=== PATIENT | male | born 1980 | race Hispanic/Latino ===

== ENCOUNTER 2017-05-09 08:07 | Emergency (ER) | payer SELFPAY ==
[2017-05-09 08:20] VITALS: RESP 18; TEMP 98.7; BMI 34.7
[2017-05-09] MEDS ORDERED: Albuterol-Ipratrop 3 mg / 0.5 (3 ml) UD IH STA (08:44)
--- NOTE | 2017-05-09 08:53 | ED PDOC ---
Arrival/HPI - General Chief Complaint: Chest Pain Time Seen by Provider: 05/09/17 08:27 Historian: Patient - History of Present Illness Narrative History of Present Illness (Text): 05/09/17 08:40 Cameron Langford is 36 year old male, whose past medical history includes asthma, who presents to the emergency department complaining of shortness of breath associated with chest discomfort, nausea and vomiting that happened last night. He reports that the symptoms have now resolved. He describes the pain as similar to his asthma. He reports that he took his inhaler machine with some relief. He states chest discomfort is worse with deep breathing and certain movement. He denies any headache, abdominal pain, fever, diarrhea, chills, or any other complaints. He denies hypertension, diabetes, tobacco use or cocaine use. PMD: Dr. Diaz 05/09/17 15:08 Time/Duration: Other (last night) Symptom Onset: Sudden Symptom Course: Unchanged Quality: Tightness, Stabbing Activities at Onset: Rest Modifying Factors (Text): worse with deep breaths and certain movements Context: Home Associated Symptoms (Text): chest pain, nausea and vomiting Past Medical History - Provider Review Nursing Documentation Reviewed: Yes - Infectious Disease Hx of Infectious Diseases: None - Tetanus Immunization Tetanus Immunization: Up to Date, Unknown - Past Medical History Past Medical History: No Previous - Cardiac Hx Cardiac Disorders: No - Pulmonary Hx Respiratory Disorders: Yes Hx Asthma: Yes - Neurological Hx Neurological Disorder: No - HEENT Hx HEENT Disorder: No - Renal Hx Renal Disorder: No - Endocrine/Metabolic Hx Endocrine Disorders: No Hx Diabetes Mellitus Type 1: No - Hematological/Oncological Hx Blood Disorders: No Other/Comment: GI BLEED - Integumentary Hx Dermatological Disorder: No - Musculoskeletal/Rheumatological Hx Falls: No - Gastrointestinal Hx Gastroesophageal Reflux: Yes Other/Comment: pt reports endo. sx in the past but is unsure as to when or what it was. - Genitourinary/Gynecological Hx Genitourinary Disorders: No - Psychiatric Hx Anxiety: Yes Hx Depression: No Hx Emotional Abuse: No Hx Physical Abuse: No Hx Substance Use: No - Past Surgical History Past Surgical History: No Previous - Surgical History Hx Appendectomy: Yes - Anesthesia Hx Anesthesia: Yes Hx Anesthesia Reactions: No Hx Malignant Hyperthermia: No - Suicidal Assessment Feels Threatened In Home Enviroment: No Family/Social History - Physician Review Nursing Documentation Reviewed: Yes Family/Social History: Unknown Family HX Smoking Status: Never Smoked Hx Alcohol Use: Yes Hx Substance Use: No Hx Substance Use Treatment: No Allergies/Home Meds Allergies/Adverse Reactions: Allergies shellfish derived Allergy (Verified 12/01/16 19:35) ANAPHYLAXIS cats Adverse Reaction (Severe, Uncoded 05/09/17 08:36) SHORTNESS OF BREATH Itching, rash, shortness of breath Home Medications: Home Meds Medication Instructions Recorded Confirmed Pantoprazole Sodium [Protonix] 40 mg PO DAILY 08/20/15 05/09/17 Albuterol HFA [Ventolin HFA 90 1 puff IH PRN PRN 12/01/16 05/09/17 mcg/actuation (8 g)] Review of Systems - Review of Systems Constitutional: absent: Fevers, Night Sweats Eyes: absent: Vision Changes ENT: absent: Hearing Changes, Rhinorrhea Respiratory: SOB. absent: Cough Cardiovascular: Chest Pain. absent: Palpitations Gastrointestinal: Nausea, Vomiting. absent: Abdominal Pain, Diarrhea Genitourinary Male: absent: Dysuria, Frequency Musculoskeletal: absent: Back Pain, Neck Pain Skin: absent: Rash Neurological: absent: Headache, Dizziness, Speech Changes Endocrine: absent: Diaphoresis Psychiatric: absent: Depression Physical Exam Vital Signs Reviewed: Yes Vital Signs Temp Pulse Resp BP Pulse Ox 05/09/17 11:55 76 18 135/80 98 05/09/17 10:00 78 18 137/79 98 05/09/17 09:45 81 18 139/84 98 05/09/17 09:13 81 18 140/77 97 05/09/17 08:20 98.7 F 88 18 123/82 97 Temperature: Afebrile Blood Pressure: Normal Pulse: Regular Respiratory Rate: Normal Appearance: Positive for: Well-Appearing, Non-Toxic Pain Distress: None Mental Status: Positive for: Alert and Oriented X 3 - Systems Exam Head: Present: Atraumatic, Normocephalic Pupils: Present: PERRL Extroacular Muscles: Present: EOMI Conjunctiva: Present: Normal Mouth: Present: Moist Mucous Membranes Pharnyx: No: ERYTHEMA, EXUDATE, TONSILS ENLARGED, Peritonsilar Swelling, Uvular Deviation Neck: Present: Normal Range of Motion Respiratory/Chest: Present: Good Air Exchange, Wheezes (scant wheezing at the bases). No: Respiratory Distress, Accessory Muscle Use Cardiovascular: Present: Regular Rate and Rhythm, Normal S1, S2. No: Murmurs Abdomen: Present: Normal Bowel Sounds. No: Tenderness, Distention, Peritoneal Signs Back: Present: Normal Inspection. No: Midline Tenderness Upper Extremity: Present: Normal Inspection. No: Cyanosis, Edema Lower Extremity: Present: Normal Inspection. No: Edema Neurological: Present: GCS=15, CN II-XII Intact, Speech Normal Skin: Present: Warm, Dry, Normal Color. No: Rashes Psychiatric: Present: Alert, Oriented x 3, Normal Insight, Normal Concentration Medical Decision Making ED Course and Treatment: 05/09/17 08:40 Impression: 36 year old male with shortness of breath with chest tightness. Differential Diagnosis included but are not limited to: Asthma exacerbation vs PE vs ptx vs pna Plan: -- EKG -- Chest X-ray -- Labs -- Duoneb -- Reassess and disposition Prior Visits: Notes and results from previous visits were reviewed. The patient last presented to the emergency department on 12/01/16 for evaluation of chest discomfort. Progress Notes: 05/09/17 10:50 Chest X-ray: Creator : Dr. Arredondo, Chad SILVA COMPARISON: 12/01/2016 FINDINGS: LUNGS: No active pulmonary disease. PLEURA: No significant pleural effusion identified. No pneumothorax apparent. CARDIOVASCULAR: Normal. OSSEOUS STRUCTURES: No significant abnormalities. VISUALIZED UPPER ABDOMEN: Normal. OTHER FINDINGS: None. IMPRESSION: No active disease. 05/09/17 11:13 Symptoms had resolved on arrival. Patient has been resting comfortably during the emergency department visit. Labs and d-dimer grossly normal. Jolienet has normal vitals. 05/09/17 11:15 Patient was given nebulizer treatment and wheezing resolved. EKG shows NSR at 74bpm with normal intervals and no ST changes. He has no risk factors for cardiac disease. He denies recurrence of symptoms. Patient to follow-up with PMD - Lab Interpretations Lab Results: 05/09/17 09:00 05/09/17 09:00 Lab Results 05/09/17 09:00: Sodium 141, Potassium 3.9, Chloride 105, Carbon Dioxide 26, Anion Gap 14, BUN 14, Creatinine 0.9, Est GFR ( Amer) > 60, Est GFR (Non- Af Amer) > 60, Random Glucose 100, Calcium 9.6, Total Bilirubin 0.9, AST 54, ALT 103 H, Alkaline Phosphatase 62, Total Protein 7.9, Albumin 4.3, Globulin 3.5 , Albumin/Globulin Ratio 1.2 05/09/17 09:00: D-Dimer, Quantitative 0.33 05/09/17 09:00: WBC 11.5 H, RBC 5.33, Hgb 15.8, Hct 45.3, MCV 85.0, MCH 29.6, MCHC 34.9, RDW 12.8, Plt Count 244, MPV 10.5, Gran % 67.3, Lymph % (Auto) 22.1, Davidson % (Auto) 7.5 H, Eos % (Auto) 2.8, Baso % (Auto) 0.3, Gran # 7.72 H, Lymph # 2.5, Davidson # 0.9 H, Eos # 0.3, Baso # 0.04 I have reviewed the lab results: Yes - RAD Interpretation Radiology Orders: 05/09/17 08:36 CHEST TWO VIEWS (PA/LAT) [RAD] Stat - Medication Orders Current Medication Orders: Discontinued Medications Albuterol/Ipratropium (Duoneb 3 Mg/0.5 Mg (3 Ml) Ud) 3 ml IH STAT STA Stop: 05/09/17 08:45 Last Admin: 05/09/17 08:50 Dose: 3 ml - Scribe Statement The provider has reviewed the documentation as recorded by the Scribe 05/09/17 Miracle Duron training with Fozia Li Provider Scribe Attestation: All medical record entries made by the Scribe were at my direction and personally dictated by me. I have reviewed the chart and agree that the record accurately reflects my personal performance of the history, physical exam, medical decision making, and the department course for this patient. I have also personally directed, reviewed, and agree with the discharge instructions and disposition. Disposition/Present on Arrival - Present on Arrival Any Indicators Present on Arrival: No History of DVT/PE: No History of Uncontrolled Diabetes: No Urinary Catheter: No History of Decub. Ulcer: No History Surgical Site Infection Following: None - Disposition Have Diagnosis and Disposition been Completed?: Yes Diagnosis: Asthma, Chest pain Disposition: HOME/ ROUTINE Disposition Time: 11:14 Patient Plan: Discharge Patient Problems: Current Active Problems Problem Status Onset Asthma Acute Chest pain Acute Condition: GOOD Discharge Instructions (ExitCare): Chest Pain (ED) Additional Instructions: Follow up with PMD within 2 days. Return to emergency department if condition worsens. Prescriptions: Albuterol HFA [Ventolin HFA 90 mcg/actuation (8 g)] 1 puff IH Q6 #1 inhaler
[2017-05-09 09:12] LABS: BASO # 0.04 K/mm3 (0.0-2.0); BASO % 0.3 % (0.0-3.0); EOS # 0.3 (0.0-0.7); EOS % 2.8 % (1.5-5.0); GRAN # 7.72 (1.4-6.5); GRAN % 67.3 % (50.0-68.0); HEMOGLOBIN 15.8 gm/dL (14.0-18.0); LYMPH # 2.5 (1.2-3.4); LYMPH % 22.1 % (22.0-35.0); MEAN CORPUSCULAR HEMOGLOBIN 29.6 pg (25.0-35.0); MEAN CORPUSCULAR HGB CONC 34.9 g/dl (31.0-37.0); MEAN PLATELET VOLUME 10.5 fl (7.0-11.0); MONO # 0.9 (0.1-0.6); MONO % 7.5 % (1.0-6.0); PLATELET COUNT 244 10^3/uL (120.0-450.0); RBC 5.33 10^6/uL (3.5-6.1); RED CELL DISTRIBUTION WIDTH 12.8 % (11.5-14.5); WHITE BLOOD COUNT 11.5 10^3/ul (4.5-11.0)
[2017-05-09 09:25] LABS: ALB/GLOB RATIO 1.2 (1.1-1.8); ALBUMIN 4.3 g/dL (3.0-4.8); ALT/SGPT 103 U/L (7-56); AST/SGOT 54 U/L (15-59); BLOOD UREA NITROGEN 14 mg/dL (7-21); CALCIUM 9.6 mg/dL (8.4-10.5); GFR AFRICAN-AMERICAN > 60; GFR NON-AFRICAN AMERICAN > 60
[2017-05-09 09:58] VITALS: O2SAT 98
--- NOTE | 2017-05-09 10:44 | RAD ---
HISTORY: Chest pain COMPARISON: 12/01/2016 TECHNIQUE: Chest PA and lateral FINDINGS: LUNGS: No active pulmonary disease. PLEURA: No significant pleural effusion identified. No pneumothorax apparent. CARDIOVASCULAR: Normal. OSSEOUS STRUCTURES: No significant abnormalities. VISUALIZED UPPER ABDOMEN: Normal. OTHER FINDINGS: None. IMPRESSION: No active disease.
[2017-05-09 11:57] VITALS: BP 135/80; PULSE 76
--- NOTE | 2017-05-09 13:32 | CARD ---
APPROVED REPORT EKG Measurement Heart [id number] ID [id number] <Conclusion> Normal sinus rhythm Normal ECG
== END 2017-05-09 11:55 | disposition home or self-care (01) ==
LOC: ED 08:07
DX: J45.909 Unspecified asthma, uncomplicated (principal); R07.9 Chest pain, unspecified

== ENCOUNTER 2017-06-09 17:59 | Emergency (ER) | payer SELFPAY ==
[2017-06-09 17:59] VITALS: BMI 34.7
[2017-06-09 18:41] VITALS: PULSE 79; RESP 16; TEMP 98.8
--- NOTE | 2017-06-09 19:09 | ED PDOC ---
Arrival/HPI - General Chief Complaint: Trauma Time Seen by Provider: 06/09/17 19:08 Historian: Patient - History of Present Illness Narrative History of Present Illness (Text): 06/09/17 19:09 36 y/o male, pmh including asthma, nkda, c/o mid and lower back pain s/p slipped and fall x 4 hours. Pt. stated that he slipped at work on the wet floor , fall on the mid and lower back, aching pain, no urinary symptoms, no hematuria , no night sweat, no dizziness, no change in vision, no palpitation, no other medical or psychological complaints. Past Medical History - Provider Review Nursing Documentation Reviewed: Yes - Infectious Disease Hx of Infectious Diseases: None - Tetanus Immunization Tetanus Immunization: Up to Date, Unknown - Past Medical History Past Medical History: No Previous - Cardiac Hx Cardiac Disorders: No - Pulmonary Hx Respiratory Disorders: Yes Hx Asthma: Yes - Neurological Hx Neurological Disorder: No - HEENT Hx HEENT Disorder: No - Renal Hx Renal Disorder: No - Endocrine/Metabolic Hx Endocrine Disorders: No Hx Diabetes Mellitus Type 1: No - Hematological/Oncological Hx Blood Disorders: No Other/Comment: GI BLEED - Integumentary Hx Dermatological Disorder: No - Musculoskeletal/Rheumatological Hx Falls: No - Gastrointestinal Hx Gastroesophageal Reflux: Yes Other/Comment: pt reports endo. sx in the past but is unsure as to when or what it was. - Genitourinary/Gynecological Hx Genitourinary Disorders: No - Psychiatric Hx Anxiety: Yes Hx Depression: No Hx Emotional Abuse: No Hx Physical Abuse: No Hx Substance Use: No - Past Surgical History Past Surgical History: No Previous - Surgical History Hx Appendectomy: Yes - Anesthesia Hx Anesthesia: Yes Hx Anesthesia Reactions: No Hx Malignant Hyperthermia: No - Suicidal Assessment Feels Threatened In Home Enviroment: No Family/Social History - Physician Review Nursing Documentation Reviewed: Yes Family/Social History: Unknown Family HX Smoking Status: Never Smoked Hx Alcohol Use: Yes Hx Substance Use: No Hx Substance Use Treatment: No Allergies/Home Meds Allergies/Adverse Reactions: Allergies shellfish derived Allergy (Verified 12/01/16 19:35) ANAPHYLAXIS cats Adverse Reaction (Severe, Uncoded 05/09/17 08:36) SHORTNESS OF BREATH Itching, rash, shortness of breath Home Medications: Home Meds Medication Instructions Recorded Confirmed Pantoprazole Sodium [Protonix] 40 mg PO DAILY 08/20/15 06/09/17 Albuterol HFA [Ventolin HFA 90 1 puff IH PRN PRN 12/01/16 06/09/17 mcg/actuation (8 g)] Review of Systems - Review of Systems Constitutional: absent: Fatigue, Fevers Eyes: absent: Vision Changes ENT: absent: Hearing Changes Respiratory: absent: SOB, Cough Cardiovascular: absent: Chest Pain Gastrointestinal: absent: Abdominal Pain, Nausea, Vomiting Musculoskeletal: Back Pain, Myalgias. absent: Arthralgias, Neck Pain, Joint Swelling Skin: absent: Rash, Pruritis, Skin Lesions Neurological: absent: Headache, Dizziness, Focal Weakness, Gait Changes Psychiatric: absent: Anxiety, Depression, Suicidal Ideation Physical Exam Vital Signs Reviewed: Yes Vital Signs Temp Pulse Resp BP Pulse Ox 06/09/17 18:40 98.8 F 79 16 131/91 H 94 L Temperature: Afebrile Blood Pressure: Hypertensive Pulse: Regular Respiratory Rate: Normal Appearance: Positive for: Well-Appearing, Non-Toxic Pain Distress: Severe Mental Status: Positive for: Alert and Oriented X 3 - Systems Exam Head: Present: Atraumatic, Normocephalic Pupils: Present: PERRL Extroacular Muscles: Present: EOMI Conjunctiva: Present: Normal Mouth: Present: Moist Mucous Membranes Neck: Present: Normal Range of Motion, Trachea Midline. No: MIDLINE TENDERNESS , Paraspinal Tenderness, Lymphadenopathy Respiratory/Chest: Present: Clear to Auscultation, Good Air Exchange. No: Respiratory Distress, Accessory Muscle Use Cardiovascular: Present: Regular Rate and Rhythm, Normal S1, S2. No: Murmurs Abdomen: Present: Normal Bowel Sounds. No: Tenderness, Distention, Peritoneal Signs, Rebound, Guarding Back: Present: Normal Inspection, Other (Thoracic and L spine: +ttp on the lower lumbar and mid thoracic spine region with no step off, +paraspinal muscle spasm, FROM without limitation, sensation intact, motor 5/5, no saddling gait. ) . No: CVA Tenderness, Pain with Leg Raise, Decubitus Ulcer Upper Extremity: Present: Normal Inspection. No: Cyanosis, Edema Lower Extremity: Present: Normal Inspection. No: Edema Neurological: Present: GCS=15, CN II-XII Intact, Speech Normal Skin: Present: Warm, Dry, Normal Color. No: Rashes Psychiatric: Present: Alert, Oriented x 3, Normal Insight, Normal Concentration Medical Decision Making ED Course and Treatment: 06/09/17 19:38 -CT thoracic and Lumbar spine -morphine 4mg IM -observe and reassess 06/09/17 21:17 -CT thoracic and lumbar show no acute fracture or subluxation -Pain decreased, no focal neurological deficits, request to be discharged home. -Discharge home with naproxen, flexeril, lidoderm patch, heat compression, follow up with your own pmd and orthopedic spine surgeon within 2 days, return to the ER for any new or worsening signs or symptoms. - RAD Interpretation Radiology Orders: 06/09/17 19:15 LUMBAR SPINE W/O CONTRAST [CT] Stat THORACIC SPINE W/O CONT [CT] Stat CT Scan THORACIC SPINE W/O CONT Exam Date: 06/09/17 This imaging exam was performed at [facility] EXAM: CT Thoracic Spine Without Intravenous Contrast CLINICAL HISTORY: 36 years old, male; Injury or trauma; Fall; Initial encounter; Abrasion; Additional info: Slipped, fall with pain TECHNIQUE: Axial computed tomography images of the thoracic spine without intravenous contrast. This CT exam was performed using one or more of the following dose reduction techniques: automated exposure control, adjustment of the mA and/or kV according to patient size, and/or use of iterative reconstruction technique. Coronal and sagittal reformatted images were created and reviewed. EXAM DATE/TIME: 06/09/2017 7:15 PM COMPARISON: There are no prior studies for comparison. FINDINGS: Vertebrae: Thoracic vertebral bodies are normal in height, configuration and alignment. Disc spaces are maintained. There is mild spondylosis with small osteophytes at multiple levels. Facet joints align anatomically. Spinous processes align in the expected fashion. L1 and L2 are unremarkable. Adjacent ribs are intact Discs/spinal canal/neural foramina: see above Soft tissues: Paraspinous muscles are unremarkable. Lungs: There is minimal dependent atelectasis in the lungs. There are scattered small blebs. Mediastinum: There are no posterior mediastinal abnormalities. IMPRESSION: Minimal spondylosis, no acute osseous abnormality Dictated By: Mayra Pedraza MD, MD Dictated Date/Time: 06/09/172035 Signed By: Mayra Pedraza MD Date Signed: 2035 Transcribed By: VRAD Transcribe Date/Time : 06/09/172035 CT Lumbar spine: FINDINGS: Vertebrae and disc spaces: T12 and 5 lumbar vertebral bodies are normal in height. There are no compression fractures. Posterior elements T12-L4 are intact. Bilateral L5 spondylolisthesis. There is minimal retrolisthesis L4 on L5. There is no spondylolisthesis L5/S1. Disc spaces are maintained. There is posterior disc bulging L5/S1. Facet joints align anatomically. Sacroiliac joints are patent. No sacral fracture is identified. Soft tissues: Psoas and paraspinous muscles are symmetric. There is minimal posterior bruising at the L5-S1 level. Retroperitoneal space: There are no acute abnormalities in the retroperitoneum. Other findings: Spinous processes align in the expected fashion. IMPRESSION: Bilateral L5 spondylolysis which appears old, no spondylolisthesis; mild disc bulge at L5/S1 Additional findings as described above. 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 Disposition/Present on Arrival - Present on Arrival Any Indicators Present on Arrival: No History of DVT/PE: No History of Uncontrolled Diabetes: No Urinary Catheter: No History of Decub. Ulcer: No History Surgical Site Infection Following: None - Disposition Have Diagnosis and Disposition been Completed?: Yes Diagnosis: Bulging disc, Accidental fall, Back pain Disposition: HOME/ ROUTINE Disposition Time: 19:38 Patient Plan: Discharge Condition: IMPROVED Additional Instructions: -Discharge home with naproxen, flexeril, lidoderm patch, heat compression, follow up with your own pmd and orthopedic spine surgeon within 2 days, return to the ER for any new or worsening signs or symptoms. Prescriptions: Cyclobenzaprine [Cyclobenzaprine HCl] 10 mg PO TID #21 tab Lidocaine 5% [Lidoderm] 1 patch TOP DAILY PRN #10 patch PRN Reason: Other Naproxen 500 mg PO BID PRN #20 tab PRN Reason: Other Referrals: Garret Diaz APN [Primary Care Provider] - Follow up with primary Scooter Barker MD [Staff Provider] - Follow up with primary Eulogio Ruano MD [Staff Provider] - Follow up with primary Forms: [employer] ([place]), WORK NOTE
[2017-06-09] MEDS ORDERED: Morphine 4 mg/ml ISec IM STA (19:15)
--- NOTE | 2017-06-09 20:36 | CT ---
EXAM: CT Thoracic Spine Without Intravenous Contrast CLINICAL HISTORY: 36 years old, male; Injury or trauma; Fall; Initial encounter; Abrasion; Additional info: Slipped, fall with pain TECHNIQUE: Axial computed tomography images of the thoracic spine without intravenous contrast. This CT exam was performed using one or more of the following dose reduction techniques: automated exposure control, adjustment of the mA and/or kV according to patient size, and/or use of iterative reconstruction technique. Coronal and sagittal reformatted images were created and reviewed. EXAM DATE/TIME: 06/09/2017 7:15 PM COMPARISON: There are no prior studies for comparison. FINDINGS: Vertebrae: Thoracic vertebral bodies are normal in height, configuration and alignment. Disc spaces are maintained. There is mild spondylosis with small osteophytes at multiple levels. Facet joints align anatomically. Spinous processes align in the expected fashion. L1 and L2 are unremarkable. Adjacent ribs are intact Discs/spinal canal/neural foramina: see above Soft tissues: Paraspinous muscles are unremarkable. Lungs: There is minimal dependent atelectasis in the lungs. There are scattered small blebs. Mediastinum: There are no posterior mediastinal abnormalities. IMPRESSION: Minimal spondylosis, no acute osseous abnormality
--- NOTE | 2017-06-09 20:44 | CT ---
EXAM: CT Lumbar Spine Without Intravenous Contrast CLINICAL HISTORY: 36 years old, male; Pain; Low back pain; Additional info: Slip and fall, landed on the lower back TECHNIQUE: Axial computed tomography images of the lumbar spine without intravenous contrast. This CT exam was performed using one or more of the following dose reduction techniques: automated exposure control, adjustment of the mA and/or kV according to patient size, and/or use of iterative reconstruction technique. Coronal and sagittal reformatted images were created and reviewed. EXAM DATE/TIME: 06/09/2017 7:15 PM COMPARISON: There are no prior studies for comparison. FINDINGS: Vertebrae and disc spaces: T12 and 5 lumbar vertebral bodies are normal in height. There are no compression fractures. Posterior elements T12-L4 are intact. Bilateral L5 spondylolisthesis. There is minimal retrolisthesis L4 on L5. There is no spondylolisthesis L5/S1. Disc spaces are maintained. There is posterior disc bulging L5/S1. Facet joints align anatomically. Sacroiliac joints are patent. No sacral fracture is identified. Soft tissues: Psoas and paraspinous muscles are symmetric. There is minimal posterior bruising at the L5-S1 level. Retroperitoneal space: There are no acute abnormalities in the retroperitoneum. Other findings: Spinous processes align in the expected fashion. IMPRESSION: Bilateral L5 spondylolysis which appears old, no spondylolisthesis; mild disc bulge at L5/S1 Additional findings as described above.
[2017-06-09 21:36] VITALS: BP 125/80; O2SAT 97
== END 2017-06-09 21:22 | disposition home or self-care (01) ==
LOC: ED 17:59
DX: M54.5 Low back pain (principal); W01.0XXA Fall on same level from slipping, tripping and stumbling without subsequent striking against object, initial encounter; Y99.0 Civilian activity done for income or pay
CPT/HCPCS: 72128; 72131; 96372; 99284; J2270

== ENCOUNTER 2018-01-28 01:53 | Emergency (ER) | payer SELFPAY ==
[2018-01-28 01:54] VITALS: BMI 34.7
[2018-01-28 02:15] VITALS: TEMP 98.3
[2018-01-28] MEDS ORDERED: Morphine 4 mg/ml ISec IVP STA (02:22)
[2018-01-28] MEDS ORDERED: Sodium Chloride 0.9% 1,000 ML IV STA (02:22)
--- NOTE | 2018-01-28 02:27 | ED PDOC ---
Arrival/HPI - General Chief Complaint: Abdominal Pain Time Seen by Provider: 01/28/18 01:58 Historian: Patient - History of Present Illness Narrative History of Present Illness (Text): 01/28/18 02:26 Cameron Langford is a 37 year old male, whose past medical history includes asthma and appendectomy, who presents to the emergency department complaining of abdominal pain. Patient states he has been experiencing nausea since 20:00 after eating with associated vomiting and RUQ abdominal since waking up prior to arrival. Patient denies any fever, chills, chest pain, shortness of breath, urinary symptoms, back pain, neck pain, headache, dizziness, or any other complaints. Symptom Onset: Gradual Symptom Course: Unchanged Activities at Onset: Light Context: Home Past Medical History - Provider Review Nursing Documentation Reviewed: Yes - Infectious Disease Hx of Infectious Diseases: None - Tetanus Immunization Tetanus Immunization: Up to Date, Unknown - Past Medical History Past Medical History: No Previous - Cardiac Hx Cardiac Disorders: No - Pulmonary Hx Respiratory Disorders: Yes Hx Asthma: Yes - Neurological Hx Neurological Disorder: No - HEENT Hx HEENT Disorder: No - Renal Hx Renal Disorder: No - Endocrine/Metabolic Hx Endocrine Disorders: No Hx Diabetes Mellitus Type 1: No - Hematological/Oncological Hx Blood Disorders: No Other/Comment: GI BLEED - Integumentary Hx Dermatological Disorder: No - Musculoskeletal/Rheumatological Hx Falls: No - Gastrointestinal Hx Gastroesophageal Reflux: Yes Other/Comment: pt reports endo. sx in the past but is unsure as to when or what it was. - Genitourinary/Gynecological Hx Genitourinary Disorders: No - Psychiatric Hx Anxiety: Yes Hx Depression: No Hx Emotional Abuse: No Hx Physical Abuse: No Hx Substance Use: No - Past Surgical History Past Surgical History: No Previous - Surgical History Hx Appendectomy: Yes Other/Comment: hole in esophagus - Anesthesia Hx Anesthesia: Yes Hx Anesthesia Reactions: No Hx Malignant Hyperthermia: No - Suicidal Assessment Feels Threatened In Home Enviroment: No Family/Social History - Physician Review Nursing Documentation Reviewed: Yes Family/Social History: Unknown Family HX Smoking Status: Never Smoked Hx Alcohol Use: Yes Frequency of alcohol use: Socially Hx Substance Use: No Hx Substance Use Treatment: No Allergies/Home Meds Allergies/Adverse Reactions: Allergies shellfish derived Allergy (Verified 01/28/18 02:15) ANAPHYLAXIS cats Adverse Reaction (Severe, Uncoded 01/28/18 02:15) SHORTNESS OF BREATH Itching, rash, shortness of breath Review of Systems - Physician Review All systems were reviewed & negative as marked: Yes - Review of Systems Constitutional: Normal. absent: Fevers Eyes: Normal ENT: Normal Respiratory: Normal. absent: SOB, Cough Cardiovascular: Normal. absent: Chest Pain Gastrointestinal: Abdominal Pain, Nausea, Vomiting Genitourinary Male: Normal. absent: Dysuria, Frequency, Hematuria, Urinary Output Changes Musculoskeletal: Normal. absent: Back Pain, Neck Pain Skin: Normal. absent: Rash Neurological: Normal. absent: Headache, Dizziness Endocrine: Normal Hemo/Lymphatic: Normal Psychiatric: Normal Physical Exam Vital Signs Reviewed: Yes Vital Signs Temp Pulse Resp BP Pulse Ox 01/28/18 11:03 72 18 132/56 L 97 01/28/18 08:21 98.3 F 97 H 18 123/77 77 L 01/28/18 05:48 96 H 18 134/88 100 01/28/18 02:11 98.3 F 114 H 20 135/96 H 97 Temperature: Afebrile Blood Pressure: Normal Pulse: Regular Respiratory Rate: Normal Appearance: Positive for: Well-Appearing, Non-Toxic, Comfortable Pain Distress: None Mental Status: Positive for: Alert and Oriented X 3 - Systems Exam Head: Present: Atraumatic, Normocephalic Pupils: Present: PERRL Extroacular Muscles: Present: EOMI Conjunctiva: Present: Normal Mouth: Present: Moist Mucous Membranes Neck: Present: Normal Range of Motion Respiratory/Chest: Present: Clear to Auscultation, Good Air Exchange. No: Respiratory Distress, Accessory Muscle Use Cardiovascular: Present: Regular Rate and Rhythm, Normal S1, S2. No: Murmurs Abdomen: Present: Normal Bowel Sounds. No: Tenderness, Distention, Peritoneal Signs Back: Present: Normal Inspection Upper Extremity: Present: Normal Inspection. No: Cyanosis, Edema Lower Extremity: Present: Normal Inspection. No: Edema Neurological: Present: GCS=15, CN II-XII Intact, Speech Normal Skin: Present: Warm, Dry, Normal Color. No: Rashes Psychiatric: Present: Alert, Oriented x 3, Normal Insight, Normal Concentration Medical Decision Making ED Course and Treatment: 01/28/18 02:26 Impression: 37 year old male complaining of RUQ abdominal pain, nausea, and vomiting. Plan: -- CT Abdomen and Pelvis -- Labs, lipase -- Urinalysis -- IV fluids -- Zofran -- Morphine -- Reassess and disposition Prior Visits: Notes and results from previous visits were reviewed. On 06/09/2017, pt was seen in the emergency department for mid/lower back pain s /p fall. Pt was d/c home. Progress Notes: 01/28/18 04:42 CT Abdomen and Pelvis shows: Limitations: Lack of intravenous contrast. Lower thorax: Small hiatal hernia. Mild mural thickening vs underdistention of distal esophagus. ABDOMEN: Liver: Fatty infiltration. Gallbladder and bile ducts: No calcified stones. No ductal dilation. Pancreas: Unremarkable. No ductal dilation. Spleen: No splenomegaly. Adrenals: No mass. Kidneys and ureters: No renal calculi. No hydronephrosis. Stomach and bowel: Fluid within small bowel. Fluid/loose stool within large bowel. Segmental areas of probable underdistention of colon. No definite mural thickening. No obstruction. Appendix: No findings to suggest acute appendicitis. PELVIS: Bladder: Unremarkable. No stones. Reproductive: Unremarkable as visualized. ABDOMEN and PELVIS: Intraperitoneal space: No significant fluid collection. No free air. Bones/joints: Chronic L5 pars defects. No acute fracture. Soft tissues: Small umbilical hernia containing fat. Tiny inguinal hernias containing fat. Vasculature: Unremarkable. No aneurysm. Lymph nodes: No pathologically enlarged lymph nodes. IMPRESSION: 1. Fluid/loose stool within bowel may suggest diarrhea illness. 2. Incidental/non-acute findings are described above. - Lab Interpretations Lab Results: 01/28/18 02:30 01/28/18 02:30 Lab Results 01/28/18 02:30: Sodium 141, Potassium 4.0, Chloride 105, Carbon Dioxide 23, Anion Gap 17, BUN 16, Creatinine 1.0, Est GFR ( Amer) > 60, Est GFR (Non- Af Amer) > 60, Random Glucose 164 H, Calcium 9.7, Total Bilirubin 0.4, AST 76 H , ALT 141 H, Alkaline Phosphatase 74, Total Protein 7.9, Albumin 4.3, Globulin 3.7, Albumin/Globulin Ratio 1.2, Lipase 134 01/28/18 02:30: PT 12.8 H, INR 1.12 H, APTT 27.0 01/28/18 02:30: WBC 16.5 H D, RBC 5.52, Hgb 16.2, Hct 46.7, MCV 84.6, MCH 29.3, MCHC 34.7, RDW 12.7, Plt Count 251, MPV 10.4, Gran % 78.2 H, Lymph % (Auto) 9.8 L, Dillon % (Auto) 9.2 H, Eos % (Auto) 2.6, Baso % (Auto) 0.2, Gran # 12.85 H, Lymph # (Auto) 1.6, Dillon # (Auto) 1.5 H, Eos # (Auto) 0.4, Baso # (Auto) 0.03 I have reviewed the lab results: Yes - RAD Interpretation Radiology Orders: 01/28/18 02:58 ABD & PELVIS W/O PO OR IV CONT [CT] Stat 01/28/18 07:29 GALL BLADDER [US] Stat 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 No Presence of Pain Presence of Pain Yes Pain Scale Used Pain Scale Used Numeric Location Pain Location Body Site Abdomen Description Description Constant Intensity of Pain at present 8 Pain Behavior Facial Grimacing IVP Administration Document 01/28/18 03:55 AD (Rec: 01/28/18 03:56 AD [id number]) Charges for Administration # of IVP Administrations 1 Sodium Chloride (Sodium Chloride 0.9%) 1,000 mls @ 100 mls/hr IV .Q10H STA Stop: 01/28/18 12:21 Last Admin: 01/28/18 02:39 Dose: 100 mls/hr eMAR Start Stop Document 01/28/18 02:39 AD (Rec: 01/28/18 02:39 AD [id number]) Intravenous Solution Start Date 01/28/18 Start Time 02:39 Ciprofloxacin (Cipro 400mg/200ml Dsw) 400 mg in 200 mls @ 133.3 mls/hr IVPB STAT STA PRN Reason: Protocol Stop: 03/28/18 08:54 Last Admin: 01/28/18 07:45 Dose: 133.3 mls/hr eMAR Start Stop Document 01/28/18 07:45 CRIMP SETTER (Rec: 01/28/18 07:46 [id number] Intravenous Solution Start Date 01/28/18 Start Time 07:46 End Date 01/28/18 End time 09:32 Total Infusion Time 106 Metoclopramide HCl (Reglan) 10 mg IVP STAT STA Stop: 01/28/18 07:23 Last Admin: 01/28/18 07:47 Dose: 10 mg IVP Administration Document 01/28/18 07:47 CRIMP SETTER (Rec: 01/28/18 07:47 [id number] Charges for Administration # of IVP Administrations 1 Morphine Sulfate (Morphine) 4 mg IVP STAT STA Stop: 01/28/18 02:23 Last Admin: 01/28/18 02:39 Dose: 4 mg MAR Pain Assessment Document 01/28/18 02:39 AD (Rec: 01/28/18 02:40 AD [id number]) Pain Reassessment Is this a pain reassessment? No Presence of Pain Presence of Pain Yes Pain Scale Used Pain Scale Used Numeric Location Pain Location Body Site Abdomen Description Intensity of Pain at present 10 Pain Behavior Facial Grimacing IVP Administration Document 01/28/18 02:39 AD (Rec: 01/28/18 02:40 AD [id number]) Charges for Administration # of IVP Administrations 1 Ondansetron HCl (Zofran Inj) 4 mg IVP STAT STA Stop: 01/28/18 02:23 Last Admin: 01/28/18 02:40 Dose: 4 mg IVP Administration Document 01/28/18 02:40 AD (Rec: 01/28/18 02:40 AD [id number]) Charges for Administration # of IVP Administrations 1 Ondansetron HCl (Zofran Inj) 4 mg IVP STAT STA Stop: 01/28/18 06:48 Last Admin: 01/28/18 06:52 Dose: 4 mg IVP Administration Document 01/28/18 06:52 AD (Rec: 01/28/18 06:52 AD [id number]) Charges for Administration # of IVP Administrations 1 Pantoprazole Sodium (Protonix Inj) 80 mg IVP STAT STA Stop: 01/28/18 07:23 Last Admin: 01/28/18 07:46 Dose: 80 mg IVP Administration Document 01/28/18 07:46 [facility] (Rec: 01/28/18 07:47 [facility]-[id number]) Charges for Administration # of IVP Administrations 1 - Transfer of Care Patient signed out to Dr:: shantal rodriguez eval and dispo - Scribe Statement The provider has reviewed the documentation as recorded by the Tevinibprecious Melgoza Provider Scribe Attestation: All medical record entries made by the Scribe were at my direction and personally dictated by me. I have reviewed the chart and agree that the record accurately reflects my personal performance of the history, physical exam, medical decision making, and the department course for this patient. I have also personally directed, reviewed, and agree with the discharge instructions and disposition. Disposition/Present on Arrival - Present on Arrival Any Indicators Present on Arrival: No History of DVT/PE: No History of Uncontrolled Diabetes: No Urinary Catheter: No History of Decub. Ulcer: No History Surgical Site Infection Following: None - Disposition Have Diagnosis and Disposition been Completed?: Yes Diagnosis: Gastroenteritis Disposition: HOME/ ROUTINE Disposition Time: 07:00 Condition: IMPROVED Discharge Instructions (ExitCare): Gastroenteritis (ED) Additional Instructions: you were treated in the ED today for right upper abdomen pain with nausea/ vomiting with infectious diarrhea but otherwise without any headache/dizziness/ difficulty breathing/chest pain/numbness/tingling/loss of limb function/pain with urination. You were otherwise breathing easily, talking easily room air, mild abdomen discomfort which improved, with good strength/sensation, pink lips , alert/oriented, no fever 98.3, improved heart rate 96, stable breathing rate 20, excellent oxygen level 97% room air, elevated blood pressure 134/88 which we recommend repeat in 2-3 days primary care office to determine further treatment, you have blood tests infection count 16, stable blood level hemoglobin 16/platelets 521, stable chemistry, liver AST/ALT mildly elevated 76/ 141, radiology ct abdomen/pelvis fluid in the intestines with diarrhea illness, intravenous fluids, zofran, reglan, protonix, hydromorphone, observation done in the ED with improvement, you had a trace amount of blood on an episode of vomiting in the ED and had a long discussion regarding staying in the hospital for further observation/testing but you refused and cautioned for complications/ but you stated you feel improved and will followup primary care, counselled to drink liquids and advance diet as tolerated and monitor urine for hydration and thus discharged home with safe ride. 1. Recommend ciprofloxacin/ flagyl as directed for infection control. recommend anti-acid as directed. 2. Recommend tylenol or motrin as directed for pain. recommend zofran as directed for nausea/vomiting control. 3. Recommend follow-up primary care 1-2 days to review symptoms, referral to gastroenterology clinic to review symptoms/ elevated liver tests AST/ALT 76/141/ct findings of hiatal hernia, thickening of esophagus to ensure no complications/cancer development, though no complaints today - referral to surgery for ct findings of small umbilical hernia and inguinal hernias with fat to ensure further treatment, referral to gastroenterology for fatty liver to ensure no complications or cancer development/though normal total bilirubin tests - referral to gastroenterolgy mildly prominent common bile duct 5.7mm to ensure no complications/cancer development. 4. If any worsening pain, fever, chills, nausea, vomiting, difficulty breathing, numbness, loss of limb function, pain with urination or any medical condition then return to the ED. Prescriptions: Ciprofloxacin [Cipro] 500 mg PO Q12 7 Days #14 tab Metronidazole [Flagyl] 500 mg PO Q8 7 Days #21 tablet Pantoprazole Sodium [Protonix] 20 mg PO DAILY 10 Days #10 ect Ondansetron ODT [Zofran ODT] 4 mg PO Q8 PRN 5 Days #20 odt PRN Reason: Nausea/Vomiting Referrals: PCP,NO [Primary Care Provider] - Follow up with primary Forms: [employer] (Thai), WORK NOTE
[2018-01-28 02:46] LABS: BASO # 0.03 K/mm3 (0.0-2.0); BASO % 0.2 % (0.0-3.0); EOS # 0.4 (0.0-0.7); EOS % 2.6 % (1.5-5.0); GRAN # 12.85 (1.4-6.5); GRAN % 78.2 % (50.0-68.0); HEMOGLOBIN 16.2 g/dL (14.0-18.0); LYMPH # 1.6 (1.2-3.4); LYMPH % 9.8 % (22.0-35.0); MEAN CELL VOLUME 84.6 fl (80.0-105.0); MEAN CORPUSCULAR HEMOGLOBIN 29.3 pg (25.0-35.0); MEAN CORPUSCULAR HGB CONC 34.7 g/dl (31.0-37.0); MEAN PLATELET VOLUME 10.4 fl (7.0-11.0); MONO # 1.5 (0.1-0.6); MONO % 9.2 % (1.0-6.0); RBC 5.52 10^6/uL (3.5-6.1); RED CELL DISTRIBUTION WIDTH 12.7 % (11.5-14.5); WHITE BLOOD COUNT 16.5 10^3/ul (4.5-11.0)
[2018-01-28 02:57] LABS: INR 1.12 (0.93-1.08); PROTHROMBIN TIME 12.8 SECONDS (9.4-12.5)
[2018-01-28 03:00] LABS: ALBUMIN 4.3 g/dL (3.0-4.8); BLOOD UREA NITROGEN 16 mg/dL (7-21); CALCIUM 9.7 mg/dL (8.4-10.5); GFR AFRICAN-AMERICAN > 60; GFR NON-AFRICAN AMERICAN > 60
[2018-01-28 03:01] LABS: ALB/GLOB RATIO 1.2 (1.1-1.8); ALT/SGPT 141 U/L (7-56); AST/SGOT 76 U/L (17-59); LIPASE 134 U/L (23-300)
[2018-01-28] MEDS ORDERED: HYDROmorphone 1 mg/ml ISec IVP STA (03:31)
--- NOTE | 2018-01-28 04:41 | CT ---
EXAM: CT Abdomen and Pelvis Without Intravenous Contrast CLINICAL HISTORY: 37 years old, male; Pain; Abdominal pain; Additional info: Abd pain TECHNIQUE: Axial computed tomography images of the abdomen and pelvis without intravenous contrast. All CT scans at this facility use one or more dose reduction techniques, viz.: automated exposure control; ma/kV adjustment per patient size (including targeted exams where dose is matched to indication; i.e. head); or iterative reconstruction technique. Coronal and sagittal reformatted images were created and reviewed. COMPARISON: US - ABDOMEN COMPLETE 2017-03-01 07:56 FINDINGS: Limitations: Lack of intravenous contrast. Lower thorax: Small hiatal hernia. Mild mural thickening vs underdistention of distal esophagus. ABDOMEN: Liver: Fatty infiltration. Gallbladder and bile ducts: No calcified stones. No ductal dilation. Pancreas: Unremarkable. No ductal dilation. Spleen: No splenomegaly. Adrenals: No mass. Kidneys and ureters: No renal calculi. No hydronephrosis. Stomach and bowel: Fluid within small bowel. Fluid/loose stool within large bowel. Segmental areas of probable underdistention of colon. No definite mural thickening. No obstruction. Appendix: No findings to suggest acute appendicitis. PELVIS: Bladder: Unremarkable. No stones. Reproductive: Unremarkable as visualized. ABDOMEN and PELVIS: Intraperitoneal space: No significant fluid collection. No free air. Bones/joints: Chronic L5 pars defects. No acute fracture. Soft tissues: Small umbilical hernia containing fat. Tiny inguinal hernias containing fat. Vasculature: Unremarkable. No aneurysm. Lymph nodes: No pathologically enlarged lymph nodes. IMPRESSION: 1. Fluid/loose stool within bowel may suggest diarrhea illness. 2. Incidental/non-acute findings are described above.
[2018-01-28 05:49] VITALS: RESP 18
--- NOTE | 2018-01-28 07:16 | ED PDOC ---
Physical Exam Vital Signs Reviewed: Yes Vital Signs Temp Pulse Resp BP Pulse Ox 01/28/18 08:21 98.3 F 77 18 123/77 77 L 01/28/18 05:48 96 H 18 134/88 100 01/28/18 02:11 98.3 F 114 H 20 135/96 H 97 Temperature: Afebrile Blood Pressure: Hypertensive Pulse: Regular Respiratory Rate: Normal Appearance: Positive for: Well-Appearing, Non-Toxic Pain Distress: None Mental Status: Positive for: Alert and Oriented X 3 - Systems Exam Head: Present: Atraumatic, Normocephalic Pupils: Present: PERRL Extroacular Muscles: Present: EOMI Conjunctiva: Present: Normal Ears: Present: Normal Mouth: Present: Moist Mucous Membranes Pharnyx: Present: Normal Nose (External): Present: Atraumatic Nose (Internal): Present: Normal Inspection Neck: Present: Normal Range of Motion Respiratory/Chest: Present: Clear to Auscultation, Good Air Exchange Cardiovascular: Present: Regular Rate and Rhythm Abdomen: No: Tenderness, Distention, Normal Bowel Sounds, Peritoneal Signs, Rebound, Guarding, McBurney's Point Tender, Rovsing's Sign Present, Hernias, Feeding Tubes, Ostomy Tubes, Mass/Organomegaly, Scars, Other Back: Present: Normal Inspection Upper Extremity: Present: Normal Inspection Lower Extremity: Present: Normal Inspection Neurological: Present: GCS=15, CN II-XII Intact, Speech Normal, Motor Func Grossly Intact Skin: Present: Warm, Normal Color Psychiatric: Present: Alert, Oriented x 3, Normal Insight, Normal Concentration Medical Decision Making ED Course and Treatment: 01/28/18 07:10 Patient endorsed to me by Dr. Gonzalez. Patient arrived to the ER for RUQ abdominal pain with associated nausea and vomiting. give abx, hydration and disposition home. 01/28/18 07:26 you were treated in the ED today for right upper abdomen pain with nausea/ vomiting with infectious diarrhea but otherwise without any headache/dizziness/ difficulty breathing/chest pain/numbness/tingling/loss of limb function/pain with urination. You were otherwise breathing easily, talking easily room air, mild abdomen discomfort which improved, with good strength/sensation, pink lips , alert/oriented, no fever 98.3, improved heart rate 96, stable breathing rate 20, excellent oxygen level 97% room air, elevated blood pressure 134/88 which we recommend repeat in 2-3 days primary care office to determine further treatment, you have blood tests infection count 16, stable blood level hemoglobin 16/platelets 521, stable chemistry, liver AST/ALT mildly elevated 76/ 141, radiology ct abdomen/pelvis fluid in the intestines with diarrhea illness, intravenous fluids, zofran, reglan, protonix, hydromorphone, observation done in the ED with improvement, you had a trace amount of blood on an episode of vomiting in the ED and had a long discussion regarding staying in the hospital for further observation/testing but you refused and cautioned for complications/ but you stated you feel improved and will followup primary care, counselled to drink liquids and advance diet as tolerated and monitor urine for hydration and thus discharged home with safe ride. 1. Recommend ciprofloxacin/ flagyl as directed for infection control. recommend anti-acid as directed. 2. Recommend tylenol or motrin as directed for pain. recommend zofran as directed for nausea/vomiting control. 3. Recommend follow-up primary care 1-2 days to review symptoms, referral to gastroenterology clinic to review symptoms/ elevated liver tests AST/ALT 76/141/ct findings of hiatal hernia, thickening of esophagus to ensure no complications/cancer development, though no complaints today - referral to surgery for ct findings of small umbilical hernia and inguinal hernias with fat to ensure further treatment, referral to gastroenterology for fatty liver to ensure no complications or cancer development/though normal total bilirubin tests - referral to gastroenterolgy mildly prominent common bile duct 5.7mm to ensure no complications/cancer development. 4. If any worsening pain, fever, chills, nausea, vomiting, difficulty breathing, numbness, loss of limb function, pain with urination or any medical condition then return to the ED. 01/28/2018 09:28 Gallbladder Ultrasound IMPRESSION: Prominent liver measuring up to 21.8 centimeters in length with diffuse increased echogenicity of the hepatic parenchymal cortex siggestive for fatty infiltration versus hepatic parenchymal disease. Clinical correlation. Limited visualization of the pancreas, aorta, and IVC. Mild prominence of the common bile duct measuring up to 5.7 millimeters. Clinical correlation. Dictator: Kalpesh Yeh MD 01/28/18 09:53 01/28/18 10:49 Reassessment Condition: Re-examined - Lab Interpretations Lab Results: 01/28/18 02:30 01/28/18 02:30 Lab Results 01/28/18 02:30: Sodium 141, Potassium 4.0, Chloride 105, Carbon Dioxide 23, Anion Gap 17, BUN 16, Creatinine 1.0, Est GFR ( Amer) > 60, Est GFR (Non- Af Amer) > 60, Random Glucose 164 H, Calcium 9.7, Total Bilirubin 0.4, AST 76 H , ALT 141 H, Alkaline Phosphatase 74, Total Protein 7.9, Albumin 4.3, Globulin 3.7, Albumin/Globulin Ratio 1.2, Lipase 134 01/28/18 02:30: PT 12.8 H, INR 1.12 H, APTT 27.0 01/28/18 02:30: WBC 16.5 H D, RBC 5.52, Hgb 16.2, Hct 46.7, MCV 84.6, MCH 29.3, MCHC 34.7, RDW 12.7, Plt Count 251, MPV 10.4, Gran % 78.2 H, Lymph % (Auto) 9.8 L, Todd % (Auto) 9.2 H, Eos % (Auto) 2.6, Baso % (Auto) 0.2, Gran # 12.85 H, Lymph # (Auto) 1.6, Todd # (Auto) 1.5 H, Eos # (Auto) 0.4, Baso # (Auto) 0.03 I have reviewed the lab results: Yes - RAD Interpretation Radiology Orders: 01/28/18 02:58 ABD & PELVIS W/O PO OR IV CONT [CT] Stat 01/28/18 07:29 GALL BLADDER [US] Stat Coater Helper: Radiologist (see mdm) - Medication Orders Current Medication Orders: Sodium Chloride (Sodium Chloride 0.9%) 1,000 mls @ 100 mls/hr IV .Q10H STA Stop: 01/28/18 12:21 Last Admin: 01/28/18 02:39 Dose: 100 mls/hr eMAR Start Stop Document 01/28/18 02:39 AD (Rec: 01/28/18 02:39 AD [id number]) Intravenous Solution Start Date 01/28/18 Start Time 02:39 Discontinued Medications Hydromorphone HCl (Dilaudid) 2 mg IVP STAT STA Stop: 01/28/18 03:32 Last Admin: 01/28/18 03:55 Dose: 2 mg MAR Pain Assessment Document 01/28/18 03:55 AD (Rec: 01/28/18 03:56 AD [id number]) Pain Reassessment Is this a pain reassessment? No Presence of Pain Presence of Pain Yes Pain Scale Used Pain Scale Used Numeric Location Pain Location Body Site Abdomen Description Description Constant Intensity of Pain at present 8 Pain Behavior Facial Grimacing IVP Administration Document 01/28/18 03:55 AD (Rec: 01/28/18 03:56 AD [id number]) Charges for Administration # of IVP Administrations 1 Ciprofloxacin (Cipro 400mg/200ml Dsw) 400 mg in 200 mls @ 133.3 mls/hr IVPB STAT STA PRN Reason: Protocol Stop: 01/28/18 08:54 Last Admin: 01/28/18 07:45 Dose: 133.3 mls/hr eMAR Start Stop Document 01/28/18 07:45 ANCHORMAN (Rec: 01/28/18 07:46 [facility]CHORMAN [id number]) Intravenous Solution Start Date 01/28/18 Start Time 07:46 End Date 01/28/18 End time 09:32 Total Infusion Time 106 Metoclopramide HCl (Reglan) 10 mg IVP STAT STA Stop: 01/28/18 07:23 Last Admin: 01/28/18 07:47 Dose: 10 mg IVP Administration Document 01/28/18 07:47 ANCHORMAN (Rec: 01/28/18 07:47 ANCHORMAN [facility] [id number]) Charges for Administration # of IVP Administrations 1 Morphine Sulfate (Morphine) 4 mg IVP STAT STA Stop: 01/28/18 02:23 Last Admin: 01/28/18 02:39 Dose: 4 mg MAR Pain Assessment Document 01/28/18 02:39 AD (Rec: 01/28/18 02:40 AD [id number]) Pain Reassessment Is this a pain reassessment? No Presence of Pain Presence of Pain Yes Pain Scale Used Pain Scale Used Numeric Location Pain Location Body Site Abdomen Description Intensity of Pain at present 10 Pain Behavior Facial Grimacing IVP Administration Document 01/28/18 02:39 AD (Rec: 01/28/18 02:40 AD [id number]) Charges for Administration # of IVP Administrations 1 Ondansetron HCl (Zofran Inj) 4 mg IVP STAT STA Stop: 01/28/18 02:23 Last Admin: 01/28/18 02:40 Dose: 4 mg IVP Administration Document 01/28/18 02:40 AD (Rec: 01/28/18 02:40 AD [id number]) Charges for Administration # of IVP Administrations 1 Ondansetron HCl (Zofran Inj) 4 mg IVP STAT STA Stop: 01/28/18 06:48 Last Admin: 01/28/18 06:52 Dose: 4 mg IVP Administration Document 01/28/18 06:52 AD (Rec: 01/28/18 06:52 AD [id number]) Charges for Administration # of IVP Administrations 1 Pantoprazole Sodium (Protonix Inj) 80 mg IVP STAT STA Stop: 01/28/18 07:23 Last Admin: 01/28/18 07:46 Dose: 80 mg IVP Administration Document 01/28/18 07:46 ANCHORMAN (Rec: 01/28/18 07:47 ANCHORMAN [facility] [id number]) Charges for Administration # of IVP Administrations 1 - Scribe Statement The provider has reviewed the documentation as recorded by the Javy Reynolds Provider Scribe Attestation: All medical record entries made by the Scribe were at my direction and personally dictated by me. I have reviewed the chart and agree that the record accurately reflects my personal performance of the history, physical exam, medical decision making, and the department course for this patient. I have also personally directed, reviewed, and agree with the discharge instructions and disposition. Disposition/Present on Arrival - Present on Arrival Any Indicators Present on Arrival: No History of DVT/PE: No History of Uncontrolled Diabetes: No Urinary Catheter: No History of Decub. Ulcer: No History Surgical Site Infection Following: None - Disposition Have Diagnosis and Disposition been Completed?: Yes Diagnosis: Gastroenteritis Disposition: HOME/ ROUTINE Disposition Time: 10:52 Patient Plan: Discharge Condition: IMPROVED Discharge Instructions (ExitCare): Gastroenteritis (ED) Additional Instructions: you were treated in the ED today for right upper abdomen pain with nausea/ vomiting with infectious diarrhea but otherwise without any headache/dizziness/ difficulty breathing/chest pain/numbness/tingling/loss of limb function/pain with urination. You were otherwise breathing easily, talking easily room air, mild abdomen discomfort which improved, with good strength/sensation, pink lips , alert/oriented, no fever 98.3, improved heart rate 96, stable breathing rate 20, excellent oxygen level 97% room air, elevated blood pressure 134/88 which we recommend repeat in 2-3 days primary care office to determine further treatment, you have blood tests infection count 16, stable blood level hemoglobin 16/platelets 521, stable chemistry, liver AST/ALT mildly elevated 76/ 141, radiology ct abdomen/pelvis fluid in the intestines with diarrhea illness, intravenous fluids, zofran, reglan, protonix, hydromorphone, observation done in the ED with improvement, you had a trace amount of blood on an episode of vomiting in the ED and had a long discussion regarding staying in the hospital for further observation/testing but you refused and cautioned for complications/ but you stated you feel improved and will followup primary care, counselled to drink liquids and advance diet as tolerated and monitor urine for hydration and thus discharged home with safe ride. 1. Recommend ciprofloxacin/ flagyl as directed for infection control. recommend anti-acid as directed. 2. Recommend tylenol or motrin as directed for pain. recommend zofran as directed for nausea/vomiting control. 3. Recommend follow-up primary care 1-2 days to review symptoms, referral to gastroenterology clinic to review symptoms/ elevated liver tests AST/ALT 76/141/ct findings of hiatal hernia, thickening of esophagus to ensure no complications/cancer development, though no complaints today - referral to surgery for ct findings of small umbilical hernia and inguinal hernias with fat to ensure further treatment, referral to gastroenterology for fatty liver to ensure no complications or cancer development/though normal total bilirubin tests - referral to gastroenterolgy mildly prominent common bile duct 5.7mm to ensure no complications/cancer development. 4. If any worsening pain, fever, chills, nausea, vomiting, difficulty breathing, numbness, loss of limb function, pain with urination or any medical condition then return to the ED. Prescriptions: Ciprofloxacin [Cipro] 500 mg PO Q12 7 Days #14 tab Metronidazole [Flagyl] 500 mg PO Q8 7 Days #21 tablet Ondansetron ODT [Zofran ODT] 4 mg PO Q8 PRN 5 Days #20 odt PRN Reason: Nausea/Vomiting Pantoprazole Sodium [Protonix] 20 mg PO DAILY 10 Days #10 ect Referrals: PCP,NO [Primary Care Provider] - Follow up with primary Forms: [facility] ([place]), WORK NOTE
[2018-01-28] MEDS ORDERED: Ciprofloxacin 400mg/200ml D5W 400 MG/200 ML BAG IVPB STA (07:24)
--- NOTE | 2018-01-28 09:30 | US ---
Right upper quadrant abdominal ultrasound History: Right upper quadrant abdominal pain. Comparison: None available. Technique: Real-time sonography was performed through the right upper quadrant of the abdomen. Findings: Liver: 21.8 centimeters in length, prominent. Increased echogenicity of the hepatic parenchymal cortex suggestive for fatty infiltration versus hepatic parenchymal disease. Clinical correlation. Gallbladder: No calculi or sludge. Normal wall thickness of 1.3 millimeters. Negative sonographic Pak's sign. Common bile duct measures 5.7 millimeters, mildly prominent. Limited visualization of the pancreas. Limited visualization of the aorta and IVC secondary to prominent bowel gas. Right kidney: 12.2 x 5.4 x 7.5 centimeters. No calculi or hydronephrosis. Impression: Prominent liver measuring up to 21.8 centimeters in length with diffuse increased echogenicity of the hepatic parenchymal cortex suggestive for fatty infiltration versus hepatic parenchymal disease. Clinical correlation. Limited visualization of the pancreas, aorta, and IVC. Mild prominence of the common bile duct measuring up to 5.7 millimeters. Clinical correlation.
[2018-01-28 11:09] VITALS: BP 132/56; PULSE 72; O2SAT 97
[2018-01-28] MEDS ORDERED: Naloxone 0.4 mg/ml Inj (Adult) ONE (18:07)
== END 2018-01-28 11:08 | disposition home or self-care (01) ==
LOC: ED 01:53 → UNDOADMOB 05:28 → ERH 05:28 → ED 11:08
DX: K52.9 Noninfective gastroenteritis and colitis, unspecified (principal)
CPT/HCPCS: 74176; 76705; 80053; 83690; 85025; 85610; 85730; 96365; 96366; 96375; 99284; C9113; J0744; J1170; J2270; J2405; J2765; J7040

== ENCOUNTER 2018-02-25 15:33 | Emergency (ER) | payer SELFPAY ==
[2018-02-25 15:35] VITALS: BMI 34.9
[2018-02-25 15:47] VITALS: RESP 18; TEMP 98.6
--- NOTE | 2018-02-25 16:24 | ED PDOC ---
Arrival/HPI - General Chief Complaint: Back Pain Time Seen by Provider: 02/25/18 15:34 Historian: Patient - History of Present Illness Narrative History of Present Illness (Text): 02/25/18 16:00 Cameron Langford is 37 year old male, whose past medical history includes asthma, who presents to the emergency department complaining of right lower back pain x 3 days. Patient stated that pain has worsen today. Pain worsen with movement and it improves with remaining still. Patient noted he had injured his lower back 9 months ago, and he has had intermittent lower back pain since then. Patient denies sob, cp, weakness, paresthesias, urinary symptoms, recent trauma , heavy lifting, GI/ incontinence, saddle anesthesias, urinary retention, leg swelling, calf pain, dizziness, abdominal pain, dysuria, penile discharge, testicular pain, skin rash, or MORALES. Patient denies illegal Drug use Time/Duration: Other (see hpi) Quality: Aching Context: Home Past Medical History - Provider Review Nursing Documentation Reviewed: Yes - Infectious Disease Hx of Infectious Diseases: None - Tetanus Immunization Tetanus Immunization: Up to Date, Unknown - Past Medical History Past Medical History: No Previous - Cardiac Hx Cardiac Disorders: No - Pulmonary Hx Respiratory Disorders: Yes Hx Asthma: Yes - Neurological Hx Neurological Disorder: No - HEENT Hx HEENT Disorder: No - Renal Hx Renal Disorder: No - Endocrine/Metabolic Hx Endocrine Disorders: No Hx Diabetes Mellitus Type 1: No - Hematological/Oncological Hx Blood Disorders: No Other/Comment: GI BLEED - Integumentary Hx Dermatological Disorder: No - Musculoskeletal/Rheumatological Hx Back Pain: Yes Hx Falls: No - Gastrointestinal Hx Gastroesophageal Reflux: Yes Other/Comment: pt reports endo. sx in the past but is unsure as to when or what it was. - Genitourinary/Gynecological Hx Genitourinary Disorders: No - Psychiatric Hx Anxiety: Yes Hx Depression: No Hx Emotional Abuse: No Hx Physical Abuse: No Hx Substance Use: No - Past Surgical History Past Surgical History: No Previous - Surgical History Hx Appendectomy: Yes Other/Comment: hole in esophagus - Anesthesia Hx Anesthesia: Yes Hx Anesthesia Reactions: No Hx Malignant Hyperthermia: No - Suicidal Assessment Feels Threatened In Home Enviroment: No Family/Social History - Physician Review Nursing Documentation Reviewed: Yes Family/Social History: Other (noncontributory) Smoking Status: Never Smoked Hx Alcohol Use: Yes Frequency of alcohol use: Socially Hx Substance Use: No Hx Substance Use Treatment: No Allergies/Home Meds Allergies/Adverse Reactions: Allergies shellfish derived Allergy (Verified 01/28/18 02:15) ANAPHYLAXIS cats Adverse Reaction (Severe, Uncoded 01/28/18 02:15) SHORTNESS OF BREATH Itching, rash, shortness of breath Home Medications: Home Meds Medication Instructions Recorded Confirmed Albuterol Sulfate [Ventolin Hfa] 1 puff IH QID PRN 02/25/18 02/25/18 Review of Systems - Review of Systems Constitutional: Normal. absent: Fatigue, Weight Change, Fevers Eyes: Normal ENT: Normal Respiratory: Normal. absent: SOB, Cough Cardiovascular: Normal. absent: Chest Pain, Palpitations Gastrointestinal: Normal. absent: Abdominal Pain, Nausea, Vomiting Genitourinary Male: Normal. absent: Dysuria, Frequency, Hematuria Musculoskeletal: Back Pain. absent: Arthralgias, Neck Pain, Joint Swelling, Myalgias Skin: Normal. absent: Rash Neurological: Normal. absent: Headache, Dizziness, Focal Weakness, Gait Changes , Speech Changes, Facial Droop, Disequilibrium, Seizure Endocrine: Normal Hemo/Lymphatic: Normal Psychiatric: Normal Physical Exam Vital Signs Temp Pulse Resp BP Pulse Ox 02/25/18 15:36 98.6 F 75 18 130/82 96 Temperature: Afebrile Blood Pressure: Normal Pulse: Regular Respiratory Rate: Normal Appearance: Positive for: Well-Appearing, Non-Toxic, Comfortable Pain Distress: None Mental Status: Positive for: Alert and Oriented X 3 - Systems Exam Head: Present: Atraumatic, Normocephalic Pupils: Present: PERRL Extroacular Muscles: Present: EOMI Conjunctiva: Present: Normal Mouth: Present: Moist Mucous Membranes Neck: Present: Normal Range of Motion. No: Meningeal Signs, MIDLINE TENDERNESS , Paraspinal Tenderness Back: Present: Normal Inspection, Paraspinal Tenderness (Mild right paravertebral tenderness. No vertebral point tenderness. No vertebral step off. No skin rash). No: CVA Tenderness, Midline Tenderness Upper Extremity: Present: Normal Inspection, Normal ROM, NORMAL PULSES Lower Extremity: Present: Normal Inspection, NORMAL PULSES, Normal ROM, Neurovascularly Intact, Capillary Refill < 2 s. No: Edema, CALF TENDERNESS Neurological: Present: GCS=15, CN II-XII Intact, Speech Normal, Motor Func Grossly Intact, Normal Sensory Function, Normal Cerebellar Funct, Gait Normal, Memory Normal Skin: Present: Warm, Dry, Normal Color. No: Rashes Psychiatric: Present: Alert, Oriented x 3, Normal Insight, Normal Concentration Medical Decision Making ED Course and Treatment: 02/25/18 16:29 Re-evaluation. Patient feels better. Discussed results and plan with patient who expresses understanding. All questions answered and there is agreement with the plan to discharge home with instructions. Patient stable for discharge. Return if symptoms persist or worsen. Patient believes back pain is from an old injury at work x 9 months ago. I recommended patient to speak with Worker Comp office. To f/u orthopedist for revaluation Patient has a normal gait. No neuro focal deficits. Re-evaluation Time: 16:29 Reassessment Condition: Re-examined, Improved - Medication Orders Current Medication Orders: Discontinued Medications Ketorolac Tromethamine (Toradol) 30 mg IM STAT STA Stop: 02/25/18 16:17 Tramadol HCl (Ultram) 50 mg PO STAT STA Stop: 02/25/18 16:18 Disposition/Present on Arrival - Present on Arrival Any Indicators Present on Arrival: No History of DVT/PE: No History of Uncontrolled Diabetes: No Urinary Catheter: No History of Decub. Ulcer: No History Surgical Site Infection Following: None - Disposition Have Diagnosis and Disposition been Completed?: Yes Diagnosis: Lumbar radiculopathy Disposition: HOME/ ROUTINE Disposition Time: 16:31 Patient Plan: Discharge Patient Problems: Current Active Problems Problem Status Onset Lumbar radiculopathy Acute Condition: GOOD Discharge Instructions (ExitCare): Radiculopathy (DC) Additional Instructions: Call private doctor for follow up visit in 1-2 days. Take medication as instructed with food. Return to emergency if pain worsen. You may need to manager hematology Comp Office. Prescriptions: Methocarbamol [Robaxin-750] 750 mg PO TID #21 tab Naproxen 500 mg PO BID PRN #14 tablet PRN Reason: Pain, Severe (8-10) traMADol [Ultram] 50 mg PO TID PRN #10 tab PRN Reason: Pain, Severe (8-10) Referrals: PCP,NO [Primary Care Provider] - Follow up with primary [facility] [Outside] - Follow up with primary [facility] [Outside] - Follow up with primary Chad Vale DO [Staff Provider] - Follow up with primary Forms: [employer] ([place]que), WORK NOTE
[2018-02-25 17:09] VITALS: PULSE 69
[2018-02-25 17:15] VITALS: BP 126/69; O2SAT 100
== END 2018-02-25 17:12 | disposition home or self-care (01) ==
LOC: ED 15:33
DX: M54.16 Radiculopathy, lumbar region (principal)
CPT/HCPCS: 96372; 99282; J1885

== ENCOUNTER 2018-09-17 20:58 | Emergency (ER) | payer SELFPAY ==
[2018-09-17 20:59] VITALS: BMI 34.9
[2018-09-17 21:25] VITALS: RESP 18; TEMP 98.4
[2018-09-17] MEDS ORDERED: Sodium Chloride 0.9% 1,000 ML IV STA (21:44)
[2018-09-17 22:18] LABS: BASO # 0.07 K/mm3 (0.0-2.0); BASO % 0.7 % (0.0-3.0); EOS # 0.4 (0.0-0.7); GRAN # 5.7 (1.4-6.5); GRAN % 54.8 % (50.0-68.0); HEMOGLOBIN 15.1 g/dL (14.0-18.0); LYMPH # 3.1 (1.2-3.4); LYMPH % 29.4 % (22.0-35.0); MEAN CELL VOLUME 85.2 fl (80.0-105.0); MEAN CORPUSCULAR HEMOGLOBIN 28.9 pg (25.0-35.0); MEAN CORPUSCULAR HGB CONC 33.9 g/dl (31.0-37.0); MONO # 1.2 (0.1-0.6); MONO % 11.1 % (1.0-6.0); RBC 5.22 10^6/uL (3.5-6.1); RED CELL DISTRIBUTION WIDTH 12.7 % (11.5-14.5); WHITE BLOOD COUNT 10.4 10^3/uL (4.5-11.0)
--- NOTE | 2018-09-17 22:23 | ED PDOC ---
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 Otherwise denies any abdominal pain, N/V/D, fever, chills, back pain, CP, SOB, urinary symptoms, or rectal pain. Reports no prior colonoscopy. Past Medical History - Infectious Disease Hx of Infectious Diseases: None - Tetanus Immunization Tetanus Immunization: Up to Date, Unknown - Past Medical History Past Medical History: No Previous - Cardiac Hx Cardiac Disorders: No - Pulmonary Hx Respiratory Disorders: Yes Hx Asthma: Yes - Neurological Hx Neurological Disorder: No - HEENT Hx HEENT Disorder: No - Renal Hx Renal Disorder: No - Endocrine/Metabolic Hx Endocrine Disorders: No Hx Diabetes Mellitus Type 1: No - Hematological/Oncological Hx Blood Disorders: No Other/Comment: GI BLEED - Integumentary Hx Dermatological Disorder: No - Musculoskeletal/Rheumatological Hx Back Pain: Yes Hx Falls: No - Gastrointestinal Hx Gastroesophageal Reflux: Yes Other/Comment: pt reports endo. sx in the past but is unsure as to when or what it was. - Genitourinary/Gynecological Hx Genitourinary Disorders: No - Psychiatric Hx Anxiety: Yes Hx Depression: No Hx Emotional Abuse: No Hx Physical Abuse: No Hx Substance Use: No - Past Surgical History Past Surgical History: No Previous - Surgical History Hx Appendectomy: Yes Other/Comment: hole in esophagus - Anesthesia Hx Anesthesia: Yes Hx Anesthesia Reactions: No Hx Malignant Hyperthermia: No - Suicidal Assessment Feels Threatened In Home Enviroment: No Family/Social History Family/Social History: No Known Family HX Smoking Status: Never Smoked Hx Alcohol Use: Yes Hx Substance Use: No Hx Substance Use Treatment: No Allergies/Home Meds Allergies/Adverse Reactions: Allergies shellfish derived Allergy (Verified 01/28/18 02:15) ANAPHYLAXIS cats Adverse Reaction (Severe, Uncoded 01/28/18 02:15) SHORTNESS OF BREATH Itching, rash, shortness of breath Home Medications: Home Meds Medication Instructions Recorded Confirmed Albuterol Sulfate [Ventolin Hfa] 1 puff IH QID PRN 02/25/18 02/25/18 Review of Systems - Review of Systems Constitutional: absent: Fatigue, Fevers Respiratory: absent: SOB, Cough Cardiovascular: absent: Chest Pain, Palpitations Gastrointestinal: Hematochezia. absent: Abdominal Pain, Diarrhea, Vomiting Genitourinary Male: absent: Dysuria, Frequency Musculoskeletal: absent: Arthralgias, Back Pain Skin: absent: Rash, Pruritis, Skin Lesions Neurological: absent: Headache, Dizziness Physical Exam Vital Signs Temp Pulse Resp BP Pulse Ox 09/17/18 20:59 98.4 F 96 H 18 133/93 H 94 L Temperature: Afebrile Blood Pressure: Normal Pulse: Regular Respiratory Rate: Normal Appearance: Positive for: Well-Appearing, Non-Toxic, Comfortable Pain Distress: None Mental Status: Positive for: Alert and Oriented X 3 - Systems Exam Head: Present: Atraumatic, Normocephalic Pupils: Present: PERRL Extroacular Muscles: Present: EOMI Conjunctiva: Present: Normal Mouth: Present: Moist Mucous Membranes Neck: Present: Normal Range of Motion Respiratory/Chest: Present: Clear to Auscultation, Good Air Exchange. No: Respiratory Distress, Accessory Muscle Use Cardiovascular: Present: Regular Rate and Rhythm, Normal S1, S2. 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 No: Rectal Tenderness, Gross Blood, Melena, Hemorrhoids, Fissures, Nodule/Mass/Lesions Back: Present: Normal Inspection Upper Extremity: Present: Normal Inspection. No: Cyanosis, Edema Lower Extremity: Present: Normal Inspection. No: Edema Neurological: Present: GCS=15, CN II-XII Intact, Speech Normal Skin: Present: Warm, Dry, Normal Color. No: Rashes Psychiatric: Present: Alert, Oriented x 3, Normal Insight, Normal Concentration Medical Decision Making ED Course and Treatment: 09/17/18 22:06 Plan : - IV - Labs - NS bolus IV Labs reviewed hgb 15, hct 44, rest of the labs wnl. On reevaluation, patient reports no abdominal pain or rectal bleeding. On exam, patient remains awake alert and oriented 3 in no acute distress. Lab results d/w the patient. Advised to follow up with primary care physician in 1-2 days without fail. Advised to take medication as prescribed. Return to the emergency room at any time for any new or worsening symptoms. Patient states he fully agrees with and understands discharge instructions. States that he agrees with the plan and disposition. Verbalized and repeated discharge instructions and plan. I have given the patient opportunity to ask any additional questions. 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 Disposition/Present on Arrival - Present on Arrival Any Indicators Present on Arrival: No History of DVT/PE: No History of Uncontrolled Diabetes: No Urinary Catheter: No History of Decub. Ulcer: No History Surgical Site Infection Following: None - Disposition Have Diagnosis and Disposition been Completed?: Yes Diagnosis: Rectal bleeding Disposition: HOME/ ROUTINE Disposition Time: 23:15 Patient Plan: Discharge Condition: STABLE Discharge Instructions (ExitCare): Hemorrhoids, Bloody Stools, Adult (DC) Additional Instructions: Thank you for letting us take care of you today. You were treated for rectal bleeding, consider hemorrhoids. The emergency medical care you received today was directed at your acute symptoms. If you were prescribed any medication, please fill it and take as directed. It may take several days for your symptoms to resolve. Return to the Emergency Department if your symptoms worsen, do not improve, or if you have any other problems. Please contact your doctor in 2 days for re-evaluation and follow up / or call one of the physicians/clinics you have been referred to that are listed on the Patient Visit Information form that is included in your discharge packet. Bring any paperwork you were given at discharge with you along with any medications you are taking to your follow up visit. Our treatment cannot replace ongoing medical care by a primary care provider (PCP) outside of the emergency department. Thank you for allowing the [facility] team to be part of your care today. Prescriptions: Docusate Sodium [Colace] 100 mg PO BID PRN #30 capsule PRN Reason: Constipation Hard Fat/Phenylephrine [place] [Anusol Suppository] 1 sup RC BID #28 sup Referrals: Karen Augustine MD [Medical Doctor] - Follow up with primary Forms: [email or web address] (Armenian), WORK NOTE
[2018-09-17 22:27] LABS: INR 1.15; PARTIAL THROMBOPLASTIN TIME 30.8 Seconds (25.1-36.5); PROTHROMBIN TIME 13.1 SECONDS (9.4-12.5)
[2018-09-17 22:51] LABS: ALB/GLOB RATIO 1.2 (1.1-1.8); ALBUMIN 4.3 g/dL (3.0-4.8); ALT/SGPT 124 U/L (7-56); AST/SGOT 67 U/L (17-59); BLOOD UREA NITROGEN 16 mg/dL (7-21); CALCIUM 9.4 mg/dL (8.4-10.5); GFR NON-AFRICAN AMERICAN > 60; LIPASE 73 U/L (23-300)
[2018-09-17 23:38] VITALS: BP 132/79; PULSE 72; O2SAT 96
== END 2018-09-17 23:37 | disposition home or self-care (01) ==
LOC: ED 20:58
DX: K62.5 Hemorrhage of anus and rectum (principal)
CPT/HCPCS: 80053; 83690; 83735; 85025; 85610; 85730; 96360; 99283; J7030

== ENCOUNTER 2018-12-06 23:54 | Emergency (ER) | payer SELFPAY ==
[2018-12-07 00:07] VITALS: BMI 36.8
[2018-12-07 00:12] VITALS: TEMP 98.4
--- NOTE | 2018-12-07 00:26 | ED PDOC ---
Arrival/HPI - General Chief Complaint: Chest Pain Time Seen by Provider: 12/07/18 00:14 Historian: Patient - History of Present Illness Narrative History of Present Illness (Text): 12/07/18 00:25 Cameron Langford is a 38 year old male, whose past medical history includes alcohol abuse and anxiety, who presents to the Emergency department complaining of palpitations. Patient states he has been experiencing intermittent episodes of palpitations with associated chest tightness and shortness of breath during the episodes for the past of couple of months. Patient states he had an episode of palpitations today, which woke him up from sleep. Patient denies any palpitations currently. Patient denies any fever, chills, nausea, vomiting, diarrhea, urinary symptoms, back pain, neck pain, headache, dizziness, or any other complaints. Time/Duration: > month Symptom Onset: Gradual Symptom Course: Intermittent Quality: Tightness Activities at Onset: Light Context: Home Past Medical History - Provider Review Nursing Documentation Reviewed: Yes - Infectious Disease Hx of Infectious Diseases: None - Tetanus Immunization Tetanus Immunization: Up to Date, Unknown - Past Medical History Past Medical History: No Previous - Cardiac Hx Cardiac Disorders: No - Pulmonary Hx Respiratory Disorders: Yes Hx Asthma: Yes - Neurological Hx Neurological Disorder: No - HEENT Hx HEENT Disorder: No - Renal Hx Renal Disorder: No - Endocrine/Metabolic Hx Endocrine Disorders: No Hx Diabetes Mellitus Type 1: No - Hematological/Oncological Hx Blood Disorders: No Other/Comment: GI BLEED - Integumentary Hx Dermatological Disorder: No - Musculoskeletal/Rheumatological Hx Back Pain: Yes Hx Falls: No - Gastrointestinal Hx Gastroesophageal Reflux: Yes Other/Comment: pt reports endo. sx in the past but is unsure as to when or what it was. - Genitourinary/Gynecological Hx Genitourinary Disorders: No - Psychiatric Hx Anxiety: Yes Hx Depression: No Hx Emotional Abuse: No Hx Physical Abuse: No Hx Substance Use: No - Past Surgical History Past Surgical History: No Previous - Surgical History Hx Appendectomy: Yes Other/Comment: hole in esophagus - Anesthesia Hx Anesthesia: Yes Hx Anesthesia Reactions: No Hx Malignant Hyperthermia: No - Suicidal Assessment Feels Threatened In Home Enviroment: No Family/Social History - Physician Review Nursing Documentation Reviewed: Yes Family/Social History: Unknown Family HX Smoking Status: Never Smoked Hx Alcohol Use: Yes Frequency of alcohol use: Socially Hx Substance Use: No Hx Substance Use Treatment: No Allergies/Home Meds Allergies/Adverse Reactions: Allergies shellfish derived Allergy (Verified 12/07/18 00:08) ANAPHYLAXIS cats Adverse Reaction (Severe, Uncoded 12/07/18 00:08) SHORTNESS OF BREATH Itching, rash, shortness of breath Home Medications: Home Meds Medication Instructions Recorded Confirmed Albuterol Sulfate [Ventolin Hfa] 1 puff IH QID PRN 02/25/18 12/07/18 Review of Systems - Physician Review All systems were reviewed & negative as marked: Yes - Review of Systems Constitutional: Normal. absent: Fevers Eyes: Normal ENT: Normal Respiratory: SOB Cardiovascular: Chest Pain, Palpitations Gastrointestinal: Normal. absent: Abdominal Pain, Diarrhea, Nausea, Vomiting Genitourinary Male: Normal. absent: Dysuria, Frequency, Hematuria, Urinary Output Changes Musculoskeletal: Normal. absent: Back Pain, Neck Pain Skin: Normal. absent: Rash Neurological: Normal. absent: Headache, Dizziness Endocrine: Normal Hemo/Lymphatic: Normal Psychiatric: Normal Physical Exam Vital Signs Reviewed: Yes Vital Signs Temp Pulse Resp BP Pulse Ox 12/07/18 00:12 98.4 F 12/07/18 00:11 95 H 16 125/85 94 L Temperature: Afebrile Blood Pressure: Normal Pulse: Regular Respiratory Rate: Normal Appearance: Positive for: Well-Appearing, Non-Toxic, Comfortable Pain Distress: None Mental Status: Positive for: Alert and Oriented X 3 - Systems Exam Head: Present: Atraumatic, Normocephalic Pupils: Present: PERRL Extroacular Muscles: Present: EOMI Conjunctiva: Present: Normal Mouth: Present: Moist Mucous Membranes Neck: Present: Normal Range of Motion Respiratory/Chest: Present: Clear to Auscultation, Good Air Exchange. No: Respiratory Distress, Accessory Muscle Use Cardiovascular: Present: Regular Rate and Rhythm, Normal S1, S2. No: Murmurs Abdomen: No: Tenderness, Distention, Peritoneal Signs Back: Present: Normal Inspection Upper Extremity: Present: Normal Inspection. No: Cyanosis, Edema Lower Extremity: Present: Normal Inspection. No: Edema Neurological: Present: GCS=15, CN II-XII Intact, Speech Normal Skin: Present: Warm, Dry, Normal Color. No: Rashes Psychiatric: Present: Alert, Oriented x 3, Normal Insight, Normal Concentration Medical Decision Making ED Course and Treatment: 12/07/18 00:25 Impression: 38 year old male complaining of intermittent palpitations with chest tightness and shortness of breath for the last couple of months. Plan: -- EKG -- Chest X-ray -- Labs, cardiac enzymes, T4, TSH, D-dimer -- UA -- Reassess and disposition Prior Visits: Notes and results from previous visits were reviewed. Progress Notes: Reviewed EKG, NSR at 74 bpm. Non-specific ST/T wave changes. 12/07/18 01:30 Chest X-ray reviewed, shows no acute processes. 12/07/18 02:20 On re-evaluation, patient is in no acute distress. I have discussed the results and plan with the patient, who expresses understanding. Patient in agreement with plan to be discharged home. Patient is stable for discharge. Patient was instructed to follow up with physician or return if symptoms worsen or new concerning symptoms arise. - Scribe Statement The provider has reviewed the documentation as recorded by the Javy Melgoza Provider Scribe Attestation: All medical record entries made by the Scribe were at my direction and personally dictated by me. I have reviewed the chart and agree that the record accurately reflects my personal performance of the history, physical exam, medical decision making, and the department course for this patient. I have also personally directed, reviewed, and agree with the discharge instructions and disposition. Disposition/Present on Arrival - Present on Arrival Any Indicators Present on Arrival: No History of DVT/PE: No History of Uncontrolled Diabetes: No Urinary Catheter: No History of Decub. Ulcer: No History Surgical Site Infection Following: None - Disposition Have Diagnosis and Disposition been Completed?: Yes Diagnosis: Palpitations Disposition: HOME/ ROUTINE Disposition Time: 02:23 Condition: GOOD Discharge Instructions (ExitCare): Palpitations Referrals: Garret Diaz APN [Primary Care Provider] - Follow up with primary Brooke Barlow MD [Medical Doctor] - Follow up with primary Forms: [email or web address] (Ukrainian), WORK NOTE
[2018-12-07 01:03] LABS: BASO # 0.1 K/mm3 (0.0-2.0); BASO % 0.9 % (0.0-3.0); EOS # 0.6 (0.0-0.7); EOS % 5.5 % (1.5-5.0); HEMOGLOBIN 15.3 g/dL (14.0-18.0); LYMPH # 3.3 (1.2-3.4); LYMPH % 30.9 % (22.0-35.0); MEAN CELL VOLUME 86.1 fl (80.0-105.0); MEAN CORPUSCULAR HEMOGLOBIN 28.8 pg (25.0-35.0); MEAN CORPUSCULAR HGB CONC 33.4 g/dl (31.0-37.0); MEAN PLATELET VOLUME 10.4 fl (7.0-11.0); MONO # 1.1 (0.1-0.6); MONO % 10.1 % (1.0-6.0); RBC 5.32 10^6/uL (3.5-6.1); RED CELL DISTRIBUTION WIDTH 12.9 % (11.5-14.5); WHITE BLOOD COUNT 10.7 10^3/uL (4.5-11.0)
[2018-12-07 01:33] LABS: T4 7.2 ug/dL (5.5-11.0)
[2018-12-07 01:48] LABS: ALB/GLOB RATIO 1.2 (1.1-1.8); ALBUMIN 4.2 g/dL (3.0-4.8); ALT/SGPT 75 U/L (7-56); AST/SGOT 42 U/L (17-59); BLOOD UREA NITROGEN 16 mg/dL (7-21); CALCIUM 9.6 mg/dL (8.4-10.5); GFR NON-AFRICAN AMERICAN > 60
[2018-12-07 01:59] LABS: TROPONIN I < 0.01 ng/mL
[2018-12-07 02:30] VITALS: BP 128/76; PULSE 80; RESP 18; O2SAT 99
--- NOTE | 2018-12-07 10:21 | RAD ---
Date of service: 12/07/2018 HISTORY: CP COMPARISON: 05/09/2017 FINDINGS: LUNGS: No active pulmonary disease. PLEURA: No significant pleural effusion identified, no pneumothorax apparent. CARDIOVASCULAR: No aortic atherosclerotic calcification present. Normal cardiac size. No pulmonary vascular congestion. OSSEOUS STRUCTURES: No significant abnormalities. VISUALIZED UPPER ABDOMEN: Normal. OTHER FINDINGS: None. IMPRESSION: No active disease.
--- NOTE | 2018-12-07 10:48 | CARD ---
APPROVED REPORT Date of service: 12/07/2018 EKG Measurement Heart [id number] <Conclusion> Normal sinus rhythm Minimal voltage criteria for LVH, may be normal variant Borderline ECG
== END 2018-12-07 02:23 | disposition home or self-care (01) ==
LOC: ED 23:54
DX: R00.2 Palpitations (principal)

== ENCOUNTER 2018-12-14 09:48 | Emergency (ER) | payer OTHER ==
[2018-12-14 09:48] VITALS: BMI 36.8
[2018-12-14 10:06] VITALS: TEMP 97.4
[2018-12-14 11:05] LABS: BASO # 0.08 K/mm3 (0.0-2.0); BASO % 0.9 % (0.0-3.0); EOS # 0.6 (0.0-0.7); LYMPH # 2.4 (1.2-3.4); MEAN CELL VOLUME 85.3 fl (80.0-105.0); MEAN CORPUSCULAR HEMOGLOBIN 29.1 pg (25.0-35.0); MEAN CORPUSCULAR HGB CONC 34.1 g/dl (31.0-37.0); MEAN PLATELET VOLUME 10.5 fl (7.0-11.0); MONO # 0.8 (0.1-0.6); MONO % 9.1 % (1.0-6.0); RBC 5.5 10^6/uL (3.5-6.1); RED CELL DISTRIBUTION WIDTH 12.6 % (11.5-14.5); WHITE BLOOD COUNT 8.8 10^3/uL (4.5-11.0)
[2018-12-14 11:12] LABS: ALB/GLOB RATIO 1.1 (1.1-1.8); ALBUMIN 4.4 g/dL (3.0-4.8); ALT/SGPT 106 U/L (7-56); AST/SGOT 61 U/L (17-59); BLOOD UREA NITROGEN 14 mg/dL (7-21); CALCIUM 9.6 mg/dL (8.4-10.5); GFR NON-AFRICAN AMERICAN > 60
--- NOTE | 2018-12-14 11:56 | ED PDOC ---
Arrival/HPI - General Chief Complaint: Shortness Of Breath Time Seen by Provider: 12/14/18 10:27 Historian: Patient - History of Present Illness Narrative History of Present Illness (Text): 12/14/18 10:39 38 year old male, with past medical history of asthma, presents to the ED for evaluation of chest tightness and shortness of breath since 9 am this morning. Patient reports symptoms are similar to the episode experienced a week ago and are consistent with prior episodes of asthma exacerbation. Patient additionally informs non-productive cough for past month but denies any palpitations. Patient denies any other associated somatic complaints. Patient denies any fevers, chills, headache, dizziness, abdominal pain, nausea, vomiting, diarrhea, back pain, neck pain, or any other complaints. Time/Duration: 4-6 hours Symptom Onset: Gradual Symptom Course: Unchanged Activities at Onset: Light Context: Home Past Medical History - Provider Review Nursing Documentation Reviewed: Yes - Infectious Disease Hx of Infectious Diseases: None - Tetanus Immunization Tetanus Immunization: Up to Date, Unknown - Past Medical History Past Medical History: No Previous - Cardiac Hx Cardiac Disorders: No - Pulmonary Hx Respiratory Disorders: Yes Hx Asthma: Yes - Neurological Hx Neurological Disorder: No - HEENT Hx HEENT Disorder: No - Renal Hx Renal Disorder: No - Endocrine/Metabolic Hx Endocrine Disorders: No Hx Diabetes Mellitus Type 1: No - Hematological/Oncological Hx Blood Disorders: No - Integumentary Hx Dermatological Disorder: No - Musculoskeletal/Rheumatological Hx Back Pain: Yes Hx Falls: No - Gastrointestinal Hx Gastroesophageal Reflux: Yes Other/Comment: pt reports endo. sx in the past but is unsure as to when or what it was. - Genitourinary/Gynecological Hx Genitourinary Disorders: No - Psychiatric Hx Depression: No Hx Emotional Abuse: No Hx Physical Abuse: No Hx Substance Use: No - Past Surgical History Past Surgical History: No Previous - Surgical History Hx Appendectomy: Yes Other/Comment: hole in esophagus - Anesthesia Hx Anesthesia: Yes Hx Anesthesia Reactions: No Hx Malignant Hyperthermia: No - Suicidal Assessment Feels Threatened In Home Enviroment: No Family/Social History - Physician Review Nursing Documentation Reviewed: Yes Family/Social History: No Known Family HX Smoking Status: Never Smoked Hx Alcohol Use: Yes Hx Substance Use: No Hx Substance Use Treatment: No Allergies/Home Meds Allergies/Adverse Reactions: Allergies shellfish derived Allergy (Verified 12/07/18 00:08) ANAPHYLAXIS cats Adverse Reaction (Severe, Uncoded 12/07/18 00:08) SHORTNESS OF BREATH Itching, rash, shortness of breath Review of Systems - Physician Review All systems were reviewed & negative as marked: Yes - Review of Systems Constitutional: absent: Fevers Respiratory: SOB, Cough Cardiovascular: Chest Pain Gastrointestinal: absent: Abdominal Pain, Diarrhea, Nausea, Vomiting Genitourinary Male: absent: Dysuria, Urinary Output Changes Musculoskeletal: absent: Back Pain, Neck Pain Skin: absent: Rash Neurological: absent: Headache, Dizziness Psychiatric: absent: Anxiety Physical Exam Vital Signs Reviewed: Yes Vital Signs Temp Pulse Resp BP Pulse Ox 12/14/18 10:38 16 96 12/14/18 10:05 97.4 F L 94 H 18 133/88 97 12/14/18 10:02 89 22 133/82 93 L Temperature: Afebrile Blood Pressure: Normal Pulse: Regular Respiratory Rate: Normal Appearance: Positive for: Well-Appearing, Non-Toxic, Comfortable Pain Distress: None Mental Status: Positive for: Alert and Oriented X 3 - Systems Exam Head: Present: Atraumatic, Normocephalic Pupils: Present: PERRL Extroacular Muscles: Present: EOMI Conjunctiva: Present: Normal Neck: Present: Normal Range of Motion Respiratory/Chest: Present: Good Air Exchange, Wheezes (mild wheezes at bases). No: Respiratory Distress, Accessory Muscle Use Cardiovascular: Present: Regular Rate and Rhythm, Normal S1, S2. No: Murmurs Abdomen: No: Tenderness, Distention, Peritoneal Signs Back: Present: Normal Inspection Upper Extremity: Present: Normal Inspection. No: Cyanosis, Edema Lower Extremity: Present: Normal Inspection. No: Edema Neurological: Present: GCS=15, CN II-XII Intact, Speech Normal Skin: Present: Warm, Dry, Normal Color. No: Rashes Psychiatric: Present: Alert, Oriented x 3, Normal Insight, Normal Concentration Medical Decision Making ED Course and Treatment: 12/14/18 11:20 Impression: 38 year old male presents to the ED for evaluation of chest tig htness and shortness of breath. Chest tightness per pt feels like previous asthma exacerbation. No leg swelling, hx of blood clots, recent surgery, trauma or hormone treatment. Chest pain description non-cardiac in nature. No family hx of heart issues. Cp is non throbbing, non pressure like and does not radiate down left arm. Pt noted to have wheezes on exam, but otherwise comfortable speaking in full sentences in NAD. Differential Diagnosis included but are not limited to: Asthma exacerbation Plan: -- Chest X-ray -- Labs -- Duoneb -- Solumedrol -- Reassess and disposition Prior Visits: Notes and results from previous visits were reviewed. Progress Notes: 12/14/18 11:59 EKG reviewed, shows NSR @94 bpm, No STEMI. Low pretest Well's, PERC out 12/14/18 13:05 Chest X-ray reviewed by radiologist, shows no active disease. 12/14/18 13:18 Lungs CTA b/l labs unremarkable chest pain fully resolved clear for d/c home with return indications and f/u. pt in NAD. - Lab Interpretations Lab Results: Total Bilirubin 0.4 mg/dL (0.2-1.3) 12/14/18 10:22 AST 61 U/L (17-59) H D 12/14/18 10:22 ALT 106 U/L (7-56) H 12/14/18 10:22 Alkaline Phosphatase 74 U/L (38-126) 12/14/18 10:22 Total Protein 8.4 g/dL (5.8-8.3) H 12/14/18 10:22 Albumin 4.4 g/dL (3.0-4.8) 12/14/18 10:22 Globulin 4.0 gm/dL 12/14/18 10:22 Albumin/Globulin Ratio 1.1 (1.1-1.8) 12/14/18 10:22 - RAD Interpretation Radiology Orders: 12/14/18 10:39 CHEST TWO VIEWS (PA/LAT) [RAD] Stat Clinical Practitioner: Radiologist - Medication Orders Current Medication Orders: Albuterol/Ipratropium (Duoneb 3 Mg/0.5 Mg (3 Ml) Ud) 3 ml IH Q15M FIONA Stop: 12/14/18 12:31 Discontinued Medications Methylprednisolone (Solu-Medrol) 125 mg IVP STAT STA Stop: 12/14/18 11:50 - Scribe Statement The provider has reviewed the documentation as recorded by the Scribe Josiane Mullins. All medical record entries made by the Scribe were at my direction and personally dictated by me. I have reviewed the chart and agree that the record accurately reflects my personal performance of the history, physical exam, medical decision making, and the department course for this patient. I have also personally directed, reviewed, and agree with the discharge instructions and disposition. Disposition/Present on Arrival - Present on Arrival Any Indicators Present on Arrival: No History of DVT/PE: No History of Uncontrolled Diabetes: No Urinary Catheter: No History of Decub. Ulcer: No History Surgical Site Infection Following: None - Disposition Have Diagnosis and Disposition been Completed?: Yes Diagnosis: Asthma attack, Chest pain Disposition: HOME/ ROUTINE Disposition Time: 13:19 Condition: GOOD Discharge Instructions (ExitCare): Asthma, Adult (DC), Chest Pain (ED) Additional Instructions: DEDRICK CALHOUN JR, thank you for letting us take care of you today. Your provider was Henry De La Cruz and you were treated for chest pain / shortness of breath. The emergency medical care you received today was directed at your acute symptoms. If you were prescribed any medication, please fill it and take as directed. It may take several days for your symptoms to resolve. Return to the Emergency Department if your symptoms worsen, do not improve, or if you have any other problems. Please contact your doctor or call one of the physicians/clinics you have been referred to that are listed on the Patient Visit Information form that is included in your discharge packet. Bring any paperwork you were given at discharge with you along with any medications you are taking to your follow up visit. Our treatment cannot replace ongoing medical care by a primary care provider outside of the emergency department. Thank you for allowing the [facility] team to be part of your care today. If you had an X-Ray or CT scan: A Radiologist will review the ED reading if any change in treatment is needed we will contact you. If you had a blood, urine, or wound culture: It will take several days for the results, if any change in treatment is needed we will contact you. If you had an STI test: It will take 48 hours for the results. Please call after 1 week if you have not heard back. Prescriptions: RX: Albuterol HFA [Ventolin HFA 90 mcg/actuation (8 g)] 1 puff IH Q4H PRN 90 Days #1 inhaler PRN Reason: Shortness Of Breath predniSONE [Prednisone] 40 mg PO Q24H 5 Days #10 tab Referrals: Radha Ware MD [Staff Provider] - Follow up with primary Rodrigo Russell MD [Staff Provider] - Follow up with primary [facility] [Outside] - Follow up with primary [facility] [Outside] - Follow up with primary [facility] [place] [Outside] - Follow up with primary Brooke Barlow MD [Medical Doctor] - Follow up with primary Forms: [employer] (Arabic)
[2018-12-14] MEDS: Albuterol-Ipratrop 3 mg / 0.5 (3 ml) UD IH SCH ×3 (11:57→13:48)
[2018-12-14 12:24] VITALS: BP 119/66; PULSE 88
--- NOTE | 2018-12-14 12:48 | RAD ---
Date of service: 12/14/2018 HISTORY: cp COMPARISON: 12/07/2018 TECHNIQUE: Chest PA and lateral FINDINGS: LUNGS: No active pulmonary disease. PLEURA: No significant pleural effusion identified. No pneumothorax apparent. CARDIOVASCULAR: No aortic atherosclerotic calcification present. Normal cardiac size. No pulmonary vascular congestion. OSSEOUS STRUCTURES: No significant abnormalities. VISUALIZED UPPER ABDOMEN: Normal. OTHER FINDINGS: None. IMPRESSION: No active disease.
[2018-12-14 13:59] VITALS: RESP 22; O2SAT 95
--- NOTE | 2018-12-14 17:10 | CARD ---
APPROVED REPORT Date of service: 12/14/2018 EKG Measurement Heart [id number] <Conclusion> Normal sinus rhythm Incomplete left bundle branch block Borderline ECG
== END 2018-12-14 13:59 | disposition home or self-care (01) ==
LOC: ED 09:48
DX: J45.909 Unspecified asthma, uncomplicated (principal); R07.89 Other chest pain
CPT/HCPCS: 71046; 80053; 85025; 93005; 96374; 99283; J2930